=== PATIENT | male | born 1945 | race Caucasian/White ===

== ENCOUNTER 2016-10-16 06:32 | Day surgery (SDC) | payer BC, MEDICARE ==
--- NOTE | ~2016-10-16 | EGD ---
EGD REPORT [facility] [address] [address] NAME: DAVID BRAND : [birth year] STATUS : REG [facility]#: [id number] AGE: 71 ADM/REG DATE : 10/16/16 MR#: [id number] REPORT SERV DATE: 10/16/16 DICTATED BY: ARMANDO HERRERA DATE: 10/16/16 REPORT STATUS : Draft [facility]ANS[facility] BY: [facility] DATE: 10/16/16 [facility] Center Patient Name: David Brand Date of : 1945 Attending MD: ARMANDO HERRERA MD Procedure Date No Time: 10/16/2016 Procedure: Colonoscopy Indications: High risk colon cancer surveillance: Personal history of colonic polyps Referring MD: FRANKY OWENS MD Medicines: as per anesthesia Complications: No immediate complications. Procedure: Pre-Anesthesia Assessment: - ASA Grade Assessment: III - A patient with severe systemic disease. After I obtained informed consent, the scope was passed under direct vision. Throughout the procedure, the patient's blood pressure, pulse, and oxygen saturations were monitored continuously. The PCF [id number] was introduced through the anus and advanced to the cecum, identified by appendiceal orifice and ileocecal valve. The colonoscopy was performed without difficulty. The patient tolerated the procedure well. The quality of the bowel preparation was fair. Findings: The perianal and digital rectal examinations were normal. A few small and large-mouthed diverticula were found in the sigmoid colon and in the descending colon. Internal hemorrhoids were found during endoscopy and were mild. Impression: - Diverticulosis in the sigmoid colon and in the descending colon. - Internal hemorrhoids. Recommendation: - Repeat colonoscopy in 3 years for surveillance. Procedure Code(s): --- Professional --- 80989, Colonoscopy, flexible, proximal to splenic flexure; diagnostic, with or without collection of specimen(s) by brushing or washing, with or without colon decompression (separate procedure) Diagnosis Code(s): --- Professional --- K64.8, Other hemorrhoids EGD REPORT [facility] [address] [facility] [place] [address] NAME: DAVID BRAND : [birth year] STATUS : REG [facility]#: [id number] AGE: 71 ADM/REG DATE : 10/16/16 MR#: [id number] REPORT SERV DATE: 10/16/16 DICTATED BY: ARMANDO HERRERA. DATE: 10/16/16 REPORT STATUS : Draft TRANSCRIBED BY: [employer] DATE: 10/16/16 K57.30, Diverticulosis of large intestine without perforation or abscess without bleeding Z86.010, Personal history of colonic polyps CPT copyright 2013 [employer]. All rights reserved. The codes documented in this report are preliminary and upon palletiser operator review may be revised to meet current compliance requirements. ARMANDO HERRERA MD 10/16/2016 8:44 AM This report has been signed electronically. Number of Addenda: 0 Note Initiated On: 10/16/2016 6:46 AM Scope Withdrawal Time 0 hours 8 minutes 25 seconds [address] [place] [address]
[~2016-10-16 06:32] MED LIST: ASAB PO; COSOPT OPH; CRESTOR20 MG PO; FLOMAX4 PO; HYDROCHLOROT25 MG PO; NORV5 PO; PROSCAR5 PO; RELA5 PO; ZESTRIL40 MG PO
== END 2016-10-16 23:59 | disposition home or self-care (01) ==
LOC: DMU 06:32
PROVIDERS: Internal Medicine Gastroenterology
PROC: 0DJD8ZZ Inspection of Lower Intestinal Tract, Via Natural or Artificial Opening Endoscopic (ICD-10-PCS; principal; 2016-10-16 07:30)
DX: Z12.11 Encounter for screening for malignant neoplasm of colon (principal); K57.30 Diverticulosis of large intestine without perforation or abscess without bleeding; K64.8 Other hemorrhoids; K21.9 Gastro-esophageal reflux disease without esophagitis; I10 Essential (primary) hypertension; E78.5 Hyperlipidemia, unspecified; G47.33 Obstructive sleep apnea (adult) (pediatric); H40.9 Unspecified glaucoma; E78.00 Pure hypercholesterolemia, unspecified; E66.01 Morbid (severe) obesity due to excess calories; Z68.31 Body mass index [BMI] 31.0-31.9, adult; Z86.010 Personal history of colon polyps; Z79.82 Long term (current) use of aspirin; Z79.899 Other long term (current) drug therapy; M19.90 Unspecified osteoarthritis, unspecified site; Z98.890 Other specified postprocedural states